=== PATIENT | male | born 1960 | race Caucasian/White ===

== ENCOUNTER → 2020-11-18 | Outpatient (CLI) | payer OTHER ==
--- NOTE | 2020-11-18 09:09 | RAD ---
EXAM: Lumbar spine, 2 views. HISTORY: Pain. COMPARISON: None. FINDINGS: 2 views of the lumbar spine are obtained. There is no listhesis. There is multilevel endpla te remodeling and facet arthropathy. No fracture is seen. IMPRESSION: Multilevel degenerative change. No acute osseous finding. Electronically signed by: Samantha Fraga MD (11/18/2020 9:07 AM) [id number]
--- NOTE | 2020-11-18 09:10 | RAD ---
EXAM: Cervical spine, 3 views. HISTORY: Neck and arm pain. COMPARISON: None. FINDINGS: 3 views of the cervical spine are obtained. There is no listhesis. The vertebral bodies are normal in height and the disc spaces are preserved. IMPRESSION: No acute osseous finding. Electronically signed by: Samantha Fraga MD (11/18/2020 9:07 AM) [id number]
== END ==
LOC: RAD 08:27
PROVIDERS: ATTEND Family Medicine
DX: Z02.71 Encounter for disability determination (principal); M47.816 Spondylosis without myelopathy or radiculopathy, lumbar region
CPT/HCPCS: 72040; 72100